=== PATIENT | female | born 1985 | race African-American/Black ===

== ENCOUNTER 2017-04-06 21:13 | Inpatient (IN) | payer OTHER ==
[~2017-04-06] VITALS: Ht 157.5 cm; Wt 84.8 kg
[2017-04-06] MEDS ORDERED: DEXT 5%/LR + PITOCIN 20UNITS/L 1,000 ML IV SCH ×2 (21:38→23:40)
[2017-04-06] MEDS ORDERED: LACTATED RINGERS 1,000 ML IV SCH (21:38)
[2017-04-06] MEDS ORDERED: METHYLERGONOVINE MALEATE 0.2 MG/ML IM PRN (21:45)
[2017-04-06] MEDS ORDERED: CARBOPROST TROMETHAMINE 250 MCG/ML AMPUL IM PRN (21:45)
[2017-04-06] MEDS ORDERED: LIDOCAINE HCL 1% 20ML VIAL (Pyxis) INJ INFIL SCH (21:45)
[2017-04-06 22:01] LABS: BASOPHILS % 0.2 % (0.0-2.0); EOSINOPHILS % 0.4 % (0.0-5.0); HEMATOCRIT. 28.9 % (36.0-48.0); HEMOGLOBIN. 9.3 g/dL (12.0-16.0); LYMPHOCYTES % 11.2 % (20.0-50.0); MEAN CORPUSCULAR HEMOGLOBIN 23.3 pg (28.0-32.0); MEAN CORPUSCULAR VOLUME 72.7 fL (81.0-99.0); MEAN PLATELET VOLUME 8.3 fl (7.4-10.4); MONOCYTES % 7.9 % (2.0-8.0); NEUTROPHILS % 80.3 % (40.0-76.0); PLATELET 157 x1000/uL (130-400); RED BLOOD CELL COUNT 3.98 mill/uL (4.2-5.4); RED CELL DISTRIBUTION WIDTH 20.2 % (11.6-14.6)
[2017-04-06 22:04] LABS: PARTIAL THROMBOPLASTIN TIME 25.7 sec (24.0-34.0)
[2017-04-06] MEDS ORDERED: PROPOFOL 200MG/20ML VIAL IV ONE (22:36)
[2017-04-06] MEDS ORDERED: LIDOCAINE HCL 1% 20ML VIAL (Pyxis) INJ ONE (22:36)
[2017-04-06] MEDS ORDERED: SUCCINYLCHOLINE CHLORIDE 200MG/10ML VIAL IV ONE (22:37)
[2017-04-06] MEDS ORDERED: ONDANSETRON HCL 4MG/2ML VIAL ONE (22:37)
[2017-04-06] MEDS ORDERED: CEFAZOLIN SODIUM 1000MG/VIAL ONE (22:37)
[2017-04-06] MEDS ORDERED: FENTANYL CITRATE/PF 50MCG/ML 2ML VIAL ONE ×2 (22:38→23:19)
[2017-04-06 22:54] LABS: HEPATITIS B SURFACE ANTIGEN NEGATIVE; RUBELLA IGG 115.2 IU/mL (4.99-10)
[2017-04-06] MEDS ORDERED: EPHEDRINE SULFATE 50MG/ML VIAL ONE (22:58)
[2017-04-06] MEDS ORDERED: OXYTOCIN 10 UNITS/ML 1ML ONE (23:23)
[2017-04-06] MEDS ORDERED: ONDANSETRON HCL 4MG/2ML VIAL IV PRN (23:45)
[2017-04-06] MEDS ORDERED: IBUPROFEN 400MG TABLET PO PRN (23:45)
[2017-04-06] MEDS ORDERED: LANOLIN OINT 0.25 GM TUBE TOP PRN (23:45)
[2017-04-06] MEDS ORDERED: RHO(D) IMMUNE GLOBULIN 300 MCG/SYR IM PRN (23:45)
[2017-04-06] MEDS ORDERED: HYDROCODONE/ACETAMINOPHEN 5/325MG TABLET PO PRN ×2 (23:45)
[2017-04-07] VITALS (11 sets, daily range): BP systolic 92–117; BP diastolic 49–71
[2017-04-07] MEDS ORDERED: FENTANYL CITRATE/PF 50MCG/ML 2ML VIAL IV NR
[2017-04-07] MEDS ORDERED: BUTORPHANOL TARTRATE 2 MG/ML VIAL IM PRN
[2017-04-07 00:16] LABS: HEMATOCRIT 25.1 % (36.0-48.0); HEMOGLOBIN 7.9 g/dL (12.0-16.0); MEAN CORPUSCULAR VOLUME 73.5 fL (81.0-99.0); PLATELET 151 x1000/uL (130-400); RED BLOOD CELL COUNT 3.42 mill/uL (4.2-5.4); RED CELL DISTRIBUTION WIDTH 20.5 % (11.6-14.6)
[2017-04-07] MEDS ORDERED: PREN-88 PO (00:33)
[2017-04-07 00:34] LABS: CLARITY URINE CLOUDY (CLEAR); COLOR URINE DARK YELLOW (YELLOW); GLUCOSE URINE NEGATIVE (NEGATIVE); KETONES URINE NEGATIVE (NEGATIVE); LEUKOCYTE ESTERASE URINE 1+ (NEGATIVE); NITRITE URINE NEGATIVE (NEGATIVE); OCCULT BLOOD URINE 1+ (NEGATIVE); PROTEIN URINE NEGATIVE (NEGATIVE); SPECIFIC GRAVITY URINE 1.021 (1.005-1.030)
[2017-04-07 01:18] LABS: *AMPHETAMINES SCREEN URINE NEGATIVE (NEGATIVE); *BARBITURATES SCREEN URINE NEGATIVE (NEGATIVE); *BENZODIAZEPINES SCREEN URINE NEGATIVE (NEGATIVE); *COCAINE SCREEN URINE NEGATIVE (NEGATIVE); CANNABINOID URINE SCREEN NEGATIVE (NEGATIVE); METHADONE URINE SCREEN NEGATIVE (NEGATIVE); OPIATES URINE SCREEN NEGATIVE (NEGATIVE); PHENCYCLIDINE URINE SCREEN NEGATIVE (NEGATIVE)
[2017-04-07] MEDS: KETOROLAC 15MG/ML VIAL IV PRN ×2 (08:32→17:18)
[2017-04-07] MEDS: PRENATAL VIT/FE FUMARATE/FA TABLET PO SCH (08:32)
[2017-04-07 09:15] LABS: HEMATOCRIT. 21.8 % (36.0-48.0); MEAN CORPUSCULAR HEMOGLOBIN 23.4 pg (28.0-32.0); MEAN CORPUSCULAR VOLUME 73.7 fL (81.0-99.0); MEAN PLATELET VOLUME 8.1 fl (7.4-10.4); PLATELET 150 x1000/uL (130-400); RED BLOOD CELL COUNT 2.96 mill/uL (4.2-5.4); RED CELL DISTRIBUTION WIDTH 20.3 % (11.6-14.6)
[2017-04-07 09:20] LABS: HEMOGLOBIN. 6.9 g/dL (12.0-16.0)
[2017-04-07 09:51] LABS: PLATELET ESTIMATE NORMAL
[2017-04-07] MEDS: FERROUS SULFATE 325MG TABLET PO SCH ×2 (12:55→17:18)
[2017-04-07] MEDS: IBUPROFEN 800MG TABLET PO PRN (16:05)
[2017-04-07] MEDS: DOCUSATE SODIUM 100MG CAPSULE PO SCH (21:36)
[2017-04-07 23:56] LABS: BASOPHILS % 0.2 % (0.0-2.0); EOSINOPHILS % 0.2 % (0.0-5.0); LYMPHOCYTES % 10.3 % (20.0-50.0); MEAN CORPUSCULAR HEMOGLOBIN 24.4 pg (28.0-32.0); MEAN CORPUSCULAR VOLUME 75.6 fL (81.0-99.0); MEAN PLATELET VOLUME 8.5 fl (7.4-10.4); MONOCYTES % 8.5 % (2.0-8.0); NEUTROPHILS % 80.8 % (40.0-76.0); PLATELET 144 x1000/uL (130-400); RED BLOOD CELL COUNT 2.74 mill/uL (4.2-5.4); RED CELL DISTRIBUTION WIDTH 20.6 % (11.6-14.6)
[2017-04-08] VITALS (12 sets, daily range): BP systolic 95–116; BP diastolic 47–74
[2017-04-08 00:01] LABS: HEMATOCRIT. 20.7 % (36.0-48.0); HEMOGLOBIN. 6.7 g/dL (12.0-16.0)
[2017-04-08] MEDS ORDERED: LACTATED RINGERS 1,000 ML IV SCH (02:45)
[2017-04-08] MEDS ORDERED: GENTAMICIN SULFATE IV NR (05:00)
[2017-04-08] MEDS ORDERED: SODIUM CHLORIDE 0.9% IV NR (05:00)
[2017-04-08] MEDS ORDERED: GENTAMICIN 120MG PREMIX 100 ML IV NR (05:00)
[2017-04-08] MEDS: AMPICILLIN 2,000 MG in SODIUM CHLORIDE 0.9% 100 ML IV SCH ×3 (05:19→17:53)
[2017-04-08 10:29] LABS: BASOPHILS % 0.2 % (0.0-2.0); EOSINOPHILS % 0.2 % (0.0-5.0); HEMATOCRIT. 25.2 % (36.0-48.0); LYMPHOCYTES % 7.5 % (20.0-50.0); MEAN CORPUSCULAR VOLUME 76.8 fL (81.0-99.0); MEAN PLATELET VOLUME 8.4 fl (7.4-10.4); MONOCYTES % 4.9 % (2.0-8.0); NEUTROPHILS % 87.2 % (40.0-76.0); PLATELET 165 x1000/uL (130-400); RED BLOOD CELL COUNT 3.28 mill/uL (4.2-5.4); RED CELL DISTRIBUTION WIDTH 19.7 % (11.6-14.6)
[2017-04-08 10:48] LABS: HEMOGLOBIN. 8.2 g/dL (12.0-16.0)
[2017-04-08] MEDS: FERROUS SULFATE 325MG TABLET PO SCH (12:16)
[2017-04-08] MEDS: PRENATAL VIT/FE FUMARATE/FA TABLET PO SCH (12:16)
[2017-04-08] MEDS: IBUPROFEN 800MG TABLET PO PRN ×2 (12:17→21:13)
[2017-04-08] MEDS ORDERED: GENTAMICIN SULFATE 100 MG in SODIUM CHLORIDE 0.9% 100 ML IV SCH (18:00)
[2017-04-08] MEDS ORDERED: GENTAMICIN 100MG PREMIX 100 ML IV SCH (18:00)
[2017-04-08] MEDS: DOCUSATE SODIUM 100MG CAPSULE PO SCH (21:12)
[2017-04-09] VITALS: BP 106/68
[2017-04-09] MEDS: AMPICILLIN 2,000 MG in SODIUM CHLORIDE 0.9% 100 ML IV SCH ×2 (00:37→06:35)
[2017-04-09 04:00] VITALS: BP 108/64
[2017-04-09 08:00] VITALS: BP 100/60
[2017-04-09] MEDS ORDERED: GENTAMICIN 100MG PREMIX 50 ML IV SCH (09:00)
[2017-04-09 09:34] VITALS: BP 108/64
[2017-04-09] MEDS: IBUPROFEN 800MG TABLET PO PRN (09:34)
[2017-04-09] MEDS: PRENATAL VIT/FE FUMARATE/FA TABLET PO SCH (09:34)
== END 2017-04-09 16:30 | disposition home or self-care (01) | DRG 766 ==
LOC: L&D 21:13 → OBSVTOIN 21:13 → 7EST PP/OB 04-07 01:50
PROVIDERS: ADMIT Obstetrics & Gynecology; ATTEND Obstetrics & Gynecology
PROC: 10D00Z1 Extraction of Products of Conception, Low, Open Approach (ICD-10-PCS; principal; 2017-04-06)
PROC: 30233N1 Transfusion of Nonautologous Red Blood Cells into Peripheral Vein, Percutaneous Approach (ICD-10-PCS; 2017-04-07)
DX: O45.93 Premature separation of placenta, unspecified, third trimester (principal); D64.9 Anemia, unspecified; O99.03 Anemia complicating the puerperium; Z37.0 Single live birth; Z3A.38 38 weeks gestation of pregnancy
CPT/HCPCS: 36415; 80305; 81001; 85025; 85027; 85610; 85730; 86592; 86703; 86762; 86850; 86900; 86920; 87340; 88307; 99281; G0378; J0171; J0290; J0330; J0690; J1580; J1885; J2210; J2405; J2590; J2704; J3010; J3490; J7030; J7050; J7120; P9016; A4315